=== PATIENT | female | born 1995 | race African-American/Black ===

== ENCOUNTER 2017-08-02 22:46 | Emergency (ER) | payer SELFPAY ==
[~2017-08-02] VITALS: Ht 160 cm; Wt 68.0 kg
[2017-08-02 22:47] VITALS: BP 100/63
== END 2017-08-03 02:24 | disposition home or self-care (01) ==
LOC: ER 22:48
DX: N89.8 Other specified noninflammatory disorders of vagina (principal)
CPT/HCPCS: 84703; 87210; 99284; A4606; Z7610